=== PATIENT | male | born 1930 | race Caucasian/White ===

== ENCOUNTER 2017-08-25 06:57 | Outpatient (CLI) | payer OTHER | END 2017-08-25 07:24 | disposition home or self-care (01) | LOC: LAB 06:57 | DX: N30.00 Acute cystitis without hematuria (principal) ==

== ENCOUNTER 2017-09-05 08:19 | Outpatient (CLI) | payer OTHER | END 2017-09-05 08:28 | disposition home or self-care (01) | LOC: SONOGRAMA 08:19 → MAMO-SONO 09:15 | DX: C67.9 Malignant neoplasm of bladder, unspecified (principal) ==

== ENCOUNTER 2018-06-08 07:33 | Outpatient (CLI) | payer OTHER | END 2018-06-08 07:42 | disposition home or self-care (01) | LOC: LAB 07:33 | DX: N30.00 Acute cystitis without hematuria (principal) ==

== ENCOUNTER 2018-11-16 07:08 | Outpatient (CLI) | payer OTHER | END 2018-11-16 07:18 | disposition home or self-care (01) | LOC: LAB 07:08 | DX: C67.9 Malignant neoplasm of bladder, unspecified (principal) ==

== ENCOUNTER 2019-05-18 09:59 | Outpatient (CLI) | payer OTHER | END 2019-05-18 10:06 | disposition home or self-care (01) | LOC: LAB 09:59 | DX: N18.9 Chronic kidney disease, unspecified (principal); N30.00 Acute cystitis without hematuria ==

== ENCOUNTER 2019-11-09 08:48 | Outpatient (CLI) | payer OTHER | END 2019-11-09 09:07 | disposition home or self-care (01) | LOC: LAB 08:48 | PROVIDERS: ATTEND Urology | DX: C67.8 Malignant neoplasm of overlapping sites of bladder (principal); B96.89 Other specified bacterial agents as the cause of diseases classified elsewhere ==

== ENCOUNTER 2019-11-30 09:57 | Outpatient (CLI) | payer OTHER | END 2019-11-30 10:06 | disposition home or self-care (01) | LOC: LAB 09:57 | PROVIDERS: ATTEND Urology | DX: N30.00 Acute cystitis without hematuria (principal) ==